=== PATIENT | male | born 1965 | race Caucasian/White ===

== ENCOUNTER 2016-08-07 11:28 | Emergency (ER) | payer MEDICARE, MEDICAID ==
[2016-08-07] MEDS ORDERED: KETOROLAC TROMETHAMINE 60 MG/2 ML VIAL IM ONE ×2 (12:29→12:30)
--- NOTE | 2016-08-07 12:39 | ERNOTE ---
Back Pain ER HPI Date of Service: 08/07/16 Presenting Symptoms: injury/pain to back, hx chronic back pain Time Seen by Provider: 08/07/16 12:12 Source: patient, family, RN notes reviewed Exam Limitations: no limitations Immunizations: IMMUNIZATION HX Immunizations Up to Date Yes Allergies/Adverse Reactions: Allergies No Known Allergies Allergy (Unverified 08/07/16 11:46) Home Medications: HOME MEDICATIONS Acyclovir 800 mg PO 5XD #35 tablet 08/07/16 [Last Taken Unknown] Amox Tr/Potassium Clavulanate [Augmentin 875-125 Tablet] 875 mg PO Q12H [Last Taken Unknown] Baclofen 10 mg PO QID 08/07/16 [Last Taken Unknown] Oxycodone HCl/Acetaminophen [Percocet 10-325 mg Tablet] 1 each PO Q6H 08/07/16 [ Last Taken Unknown] oxyCODONE HCL [Oxycontin] 20 mg PO Q8H 08/07/16 [Last Taken Unknown] Narrative: 51 y/o male ambulatory to the ED for right flank region pain that began 2 days ago. He is on oxycontin, oxycodone and Baclofen for chronic low back pain. He reports this pain is different and describes it as a burning, prickling sensation. The pain is along the lower rib margin, and his chronic pain is in the low back. He recently had an INGRIS. He has also been on Augmentin for a few days for a cat bite. Date (Duration): 08/05/16 Timing: Reports: constant Quality/Severity: Reports: severe, burning, stabbing Location of pain: Reports: no radiation Activities at Onset: Reports: none Recent Injury?: Reports: no Modifying Factors - (Improves): Reports: other - heat Modifying Factors - (Worsens): Reports: nothing Associated Symptoms: Denies: fever/chills, sweating, constipation/incontinence, problems urinating, difficulty walking, numbess/weakness in legs Prior Treament: Reports: currently on antibiotics. Denies: recently seen Review of Systems - Review of Systems Constitutional: Present: See HPI EYE: Present: no symptoms reported ENT: Present: no symptoms reported Respiratory: Absent: shortness of breath, cough Cardiology: Present: no symptoms reported Gastrointestinal/Abdominal: Present: nausea. Absent: vomiting, abdominal pain Genitourinary: Absent: dysuria, hematuria Musculoskeletal: Present: back pain, muscle pain Skin: Present: lesions. Absent: lumps Neurological: Present: tingling. Absent: headache, dizziness/light-headedness Endocrine: Present: no symptoms reported Hematologic/Lymphatic: Present: no symptoms reported Psych: Present: no symptoms reported - Patient's Past Medical History Patient History - Medical: Chronic Pain Patient History - Cardiac/Respiratory: No pertinent hx Patient History - Cancer: No Hx of Cancer Patient History - Surgical Procedures: No surgical history Patient History - Other: None - Social History Living Situations: home Have you smoked in the past 12 months: No - vapor - Immunizations Immunizations Up to Date: Yes Physical Exam - Physical Exam General Appearance: Present: wd/wn, alert, no apparent distress Respiratory: Present: no respiratory distress, normal breath sounds, no accessory muscle use, lungs clear Cardiovascular/Chest: Present: regular rate, rhythm, no murmur, normal peripheral pulses Back Exam: Present: no vertebral tenderness, CVA tenderness (R), decreased range of motion. Absent: CVA tenderness (L) Extremity Exam: Present: normal inspection, no edema, normal range of motion Neurological Exam: Present: alert, oriented, normal mood/affect, no motor/ sensory deficits Skin Exam: Present: warm/dry, skin rash - 3 papular/vesicular lesions in right flank region ED Progress - Vital Signs Vital Signs: Vital Signs 08/07/16 11:43 Temperature 36.2 C L Pulse Rate 75 Respiratory 14 Rate Blood Pressure 166/91 O2 Sat by Pulse 96 Oximetry - Progress/Reassessment Chief Complaint: Back Pain Departure Clinical Impression: Flank pain, acute Herpes zoster Qualifiers: Herpes zoster complications: without complications Qualified Code(s): B02.9 - Zoster without complications - Departure Disposition: Home Follow Up Needed Condition: Stable Instructions: Shingles, [id number] Additional Instructions: Continue your current medications Follow up with your doctor as needed with new or worsening symptoms Prescriptions: Acyclovir 800 mg PO 5XD #35 tablet
--- OUTSIDE RECORDS SUMMARY | 2016-08-07 13:03 | XMS REPORT | Continuity of Care Document ---
:1965 Author Organization [facility] ([facility]) Address [address] [place] [address] Phone [phone] Care Team Providers Name Role Phone Unavailable Primary Care Provider Unavailable Source Comments This disclosure is being made pursuant to the Care Everywhere program, applicable federal and state laws, and may not contain all informaitonavailable regarding this patient.[facility] ([facility]) Active Allergies and Adverse Reactions No Active Allergies Current Medications Not on file Active Problems Problem Noted Date Abdominal pain, unspecified site 09/02/2000 Social History Tobacco Use Types Packs/Day Years Used Date Never Assessed Plan of Care Health Maintenance Due Date Last Done Comments Hepatitis B Vaccine (1 of 3 - Primary Series) 1965 Tdap Vaccine 1977 Lipid Disorder Screening 1984 MMR Vaccine 1984 Td Vaccine 1984 Influenza Vaccine: Seasonal (#1) 01/12/2016 Colonoscopy 04/17/2016 Prostate Cancer Screening 2016 Results from Last 3 Months Not on file
[2016-08-07 13:34] LABS: Urine Appearance Clear; Urine Bilirubin Negative (NEGATIVE); Urine Blood Negative /ul (NEGATIVE); Urine Color Yellow; Urine Ketone Negative (NEGATIVE); Urine Nitrite Negative (NEGATIVE); Urine Protein Negative (NEGATIVE); Urine Urobilinogen Normal (NORMAL)
[2016-08-07 13:35] LABS: Urine Bacteria None Seen; Urine RBC None Seen /hpf (0-5); Urine WBC 0-5 /hpf (0-5)
[2016-08-07] MEDS ORDERED: ACYCLOVIR 800 MG TABLET PO ONE (13:36)
[2016-08-07] MEDS ORDERED: ACYCLOVIR 800 MG TABLET ONE (13:46)
[2016-08-07 13:54] VITALS: BP 172/94
== END 2016-08-07 13:53 | disposition home or self-care (01) ==
LOC: ER 11:28
DX: B02.9 Zoster without complications (principal); R10.9 Unspecified abdominal pain